=== PATIENT | female | born 1965 | race Two or more races ===

== ENCOUNTER 2024-02-09 12:51 | Emergency (ER) | payer OTHER ==
[2024-02-09 13:19] VITALS: BMI 28.1
[2024-02-09 16:26] LABS: BASO % 0.7 % (0-2.0); EOS % 3.4 % (0-4.5); HEMATOCRIT 42.2 % (32.4-45.2); HEMOGLOBIN 14.2 GM/dL (10.7-15.3); LYMPH % 38.8 % (8-40); MCH 26.1 pg (25.7-33.7); MCHC 33.5 g/dl (32.0-36.0); MEAN CELL VOLUME 77.9 fl (80-96); MEAN PLT VOLUME 8.9 fl (7.5-11.1); MONO % 7.1 % (3.8-10.2); PLATELET COUNT 184 10^3/uL (134-434); RBC 5.42 M/mm3 (3.60-5.2); RDW 15.6 % (11.6-15.6); WHITE BLOOD COUNT 7.2 K/mm3 (4.0-10.0)
[2024-02-09 16:35] LABS: VENOUS BASE EXCESS -4.3 mmol/L (-2-2); VENOUS O2 SATURATION 81.5 % (70-80); VENOUS PCO2 43.5 mmHg (38-52); VENOUS PH 7.318 (7.310-7.410)
[2024-02-09] MEDS ORDERED: ACETAMINOPHEN INJECTION 100 ML ONE (16:41)
[2024-02-09 16:43] LABS: INR 1.1 (0.83-1.09); PROTHROMBIN TIME (PATIENT) 12.6 SEC (9.7-13.0)
[2024-02-09 16:46] LABS: ACTIVATED PTT 33.5 SECONDS (25.2-36.5)
[2024-02-09] MEDS: ACETAMINOPHEN 1000 MG/100 ML BAG IVPB ONE (16:47)
[2024-02-09 17:15] LABS: ALBUMIN 3.8 g/dl (3.4-5.0); BLOOD UREA NITROGEN 13.6 mg/dL (7-18); CALCIUM 9.6 mg/dL (8.5-10.1)
[2024-02-09 17:19] LABS: CREATININE 0.8 mg/dL (0.55-1.3)
[2024-02-09 17:20] LABS: BILIRUBIN,TOTAL 0.8 mg/dL (0.2-1)
[2024-02-09 17:21] LABS: TOT PROT 7.4 g/dl (6.4-8.2)
[2024-02-09 21:51] VITALS: BP 171/90; PULSE 72; RESP 18; TEMP 98.3
== END 2024-02-09 21:51 | disposition home or self-care (01) ==
LOC: JER 12:51
PROC: 3E033NZ Introduction of Analgesics, Hypnotics, Sedatives into Peripheral Vein, Percutaneous Approach (ICD-10-PCS; principal; 2024-02-09)
DX: R07.2 Precordial pain (principal); R06.02 Shortness of breath; R05.9 Cough, unspecified; Z20.822 Contact with and (suspected) exposure to COVID-19
CPT/HCPCS: 0241U-QW; 36415; 71045-TC-FY; 71275-TC; 80053; 82803; 83880; 84484; 85025; 85379; 85610; 85730; 93005; 93010; 96374; 99285-25; J0131